=== PATIENT | female | born 1965 | race African-American/Black ===

== ENCOUNTER 2022-05-28 16:23 | Emergency (ER) | payer MEDICAID ==
[~2022-05-28] VITALS: Ht 167.6 cm; Wt 82.0 kg
[2022-05-28] MEDS ORDERED: METHYLPREDNISOLONE SOD SUCC 125 MG/2 ML VIAL IV STA (16:29)
[2022-05-28] MEDS ORDERED: IPRATROPIUM BROMIDE (0.02%) 0.5MG/2.5ML NEB HHN STA (16:29)
[2022-05-28] MEDS ORDERED: MAGNESIUM 2 G PREMIX 50 ML IV ONE (16:30)
[2022-05-28] MEDS ORDERED: ALBUTEROL (0.083%) 2.5MG/3ML NEB HHN SCH (16:30)
[2022-05-28] MEDS ORDERED: DOXYCYCLINE HYCLATE 100 MG/VIAL IV ONE (16:30)
[2022-05-28] MEDS ORDERED: DOXYCYCLINE 100MG in DEXTROSE 5% WATER 100ML IV NR (16:45)
[2022-05-28 16:50] LABS: BASOPHILS % 0.9 % (0.0-2.0); EOSINOPHILS % 3.9 % (0.0-5.0); HEMATOCRIT. 47.3 % (36.0-48.0); HEMOGLOBIN. 15.4 g/dL (12.0-16.0); LYMPHOCYTES % 45.1 % (20.0-50.0); MEAN CORPUSCULAR HEMOGLOBIN 29.3 pg (28.0-32.0); MEAN CORPUSCULAR VOLUME 90.2 fL (81.0-99.0); MEAN PLATELET VOLUME 7.9 fl (7.4-10.4); MONOCYTES % 5.4 % (2.0-8.0); NEUTROPHILS % 44.7 % (40.0-76.0); PLATELET 536 x1000/uL (130-400); RED BLOOD CELL COUNT 5.25 mill/uL (4.2-5.4)
[2022-05-28 17:32] LABS: CHLORIDE 107 mEq/L (98-107)
[2022-05-28] MEDS ORDERED: ALBUTEROL (0.083%) 2.5MG/3ML NEB HHN ONE (20:15)
[2022-05-28 21:30] VITALS: BP 134/80
[2022-05-28] MEDS ORDERED: P20 MT (23:29)
[2022-05-28] MEDS ORDERED: DOXY-326 MT (23:29)
[2022-05-28] MEDS ORDERED: ALBU2.5V13 NEB (23:29)
[2022-05-28] MEDS ORDERED: BECL10.6 INH (23:29)
== END 2022-05-29 00:32 | disposition home or self-care (01) ==
LOC: ER 16:23
DX: J45.901 Unspecified asthma with (acute) exacerbation (principal); J44.9 Chronic obstructive pulmonary disease, unspecified; Z20.822 Contact with and (suspected) exposure to COVID-19
CPT/HCPCS: 36415; 71045; 80053; 83605; 83880; 85025; 87040; 87426; 87804; 93005; 94640; 94660; 96365; 96368; 96375; 99291; C9803; J2930; J3475; J3490; J7060; Z7610